=== PATIENT | male | born 1955 | race Caucasian/White ===

== ENCOUNTER 2021-06-15 12:34 | Outpatient (CLI) | payer MEDICARE, OTHER, SELFPAY ==
--- NOTE | 2021-06-15 12:53 | CT_ITS ---
STUDY: CT RIGHT SHOULDER REASON FOR EXAM: Male, 65 years old. PRIMARY OSTEOARTHRITIS R SHOULDER RADIATION DOSAGE (If Supplied By Facility): CTDIvol = ( 25.83 ) mGy, DLP = ( 549.25 ) mGycm TECHNIQUE: The patient was scanned in a multi detector CT scanner. High resolution transaxial imaging was performed without the administration of intravenous contrast material. Sagittal and coronal images were reconstructed. Individualized dose optimization techniques were used for this CT. COMPARISON: None. FINDINGS: There is severe osteoarthritis, with severe articular joint space narrowing, osteoarthritic spurring, articular remodeling, and with articular erosions. Degenerative spur formation is seen along the inferior medial aspect of the proximal humeral head with evidence of subchondral geodes. Subchondral geodes are also seen at the level of the glenoid fossa. There is evidence of narrowing of the space between the humeral head and acromion suggestive of rotator cuff pathology. Normal coracoid process. Normal visualized lateral clavicle. There is moderate osteoarthritis with articular joint space narrowing and with osteoarthritic spurring. There is a Type II morphology (curved), with a neutral orientation. Normal visualized muscles and soft tissue structures. CT/Extremity Upper without Contra IMPRESSION: Marked degree of osteoarthritis of the glenohumeral joint as described. Osteoarthritis of the glenohumeral joint. Decreased distance between the humeral head and acromion suggestive of rotator cuff pathology. Electronically Signed: Moshe Jenkins MD at 15:26 EST , Service support ,
== END 2021-06-15 23:59 | disposition short-term general hospital (02) ==
PROVIDERS: PCP Orthopaedic Surgery; Visit Provider Specialist
DX: M19.011 Primary osteoarthritis, right shoulder (principal)
CPT/HCPCS: 73200